=== PATIENT | male | born 1990 | race Caucasian/White ===

== ENCOUNTER 2016-12-15 10:37 | Emergency (ER) | payer MEDICAID ==
[~2016-12-15] VITALS: Ht 188 cm; Wt 68.9 kg
--- NOTE | 2016-12-15 10:37 | NUR ---
Patient BIBA BLS, transferred to bed 6. RN evaluating patient at bedside.
[2016-12-15 10:39] VITALS: BP 113/64
[2016-12-15] MEDS ORDERED: NACL 0.9% 1,000 ML IV ONE (10:50)
--- NOTE | 2016-12-15 10:50 | NUR ---
PATIENT PRESENTS TO ED WITH 26 YO MALE BIB EMS FROM [facility]ELD FOR SLEEPING ON THE SIDEWALK. ON ARRIVAL HE IS AWAKE AND ALERT ABLE TO AMBULATE. TO BED 6. DENIES N/V/D; SKIN IS PINK/WARM/DRY; AAOX4 WITH EVEN AND STEADY GAIT; LUNGS CLEAR BL; HR EVEN AND REGULAR; PT DENIES ANY FEVER, CP, SOB, OR COUGH AT THIS TIME; PATIENT STATES PAIN OF 0/10 AT THIS TIME; VSS; PATIENT POSITIONED FOR COMFORT; HOB ELEVATED; BEDRAILS UP X2; BED DOWN. ER MD MADE AWARE OF PT STATUS.
[2016-12-15 11:59] VITALS: BP 107/61
--- NOTE | 2016-12-15 12:02 | NUR ---
Patient discharged with v/s stable. Written and verbal after care instructions given and explained. Patient verbalized understanding. Ambulatory with steady gait. All questions addressed prior to discharge. Advised to follow up with PMD.
== END 2016-12-15 12:02 | disposition home or self-care (01) ==
LOC: MED 10:37
DX: Z00.00 Encounter for general adult medical examination without abnormal findings (principal)
CPT/HCPCS: 36415; 93005; 96360; 99285; G0482; J7030